=== PATIENT | male | born 1985 | race American Indian/Alaskan Native ===

== ENCOUNTER 2016-09-13 23:12 | Emergency (ER) | payer MEDICAID, OTHER ==
[~2016-09-13] VITALS: Ht 172.7 cm; Wt 72.6 kg
[~2016-09-13 23:12] MED LIST: IBUPROFEN800 MG ORAL; NORCO 5-325 TA1 EACH ORAL; PEPCID40 MG PO
[2016-09-14] VITALS: BP 147/95
[2016-09-14] MEDS ORDERED: LORazepam Inj 2mg/ml 1ml IV ONE
[2016-09-14 00:33] LABS: BASOPHILS % (AUTO) 1.1 % (0.0-2.0); MEAN CORPUSCULAR HEMOGLOBIN 32.8 PG (27.0-31.0); MEAN CORPUSCULAR HGB CONC 35.9 G/DL (32.0-36.0); MEAN CORPUSCULAR VOLUME 91 FL (80-99); MEAN PLATELET VOLUME 6.7 FL (6.5-10.1); MONOCYTES % (AUTO) 7.8 % (1.0-10.0); NEUTROPHILS % (AUTO) 65.1 % (45.0-75.0); PLATELET COUNT 103 K/UL (150-450); RED BLOOD COUNT 4.97 M/UL (4.70-6.10); RED CELL DISTRIBUTION WIDTH 10.8 % (11.6-14.8); WHITE BLOOD COUNT 6.5 K/UL (4.8-10.8)
[2016-09-14 00:50] LABS: ALANINE AMINOTRANSFERASE 132 U/L (3-41); ALBUMIN/GLOBULIN RATIO 1.3 (1.0-2.7); ANION GAP 21 (5-15); ASPARTATE AMINO TRANSFERASE 145 U/L (5-40); CALCIUM 8.3 mg/dL (8.6-10.2); CARBON DIOXIDE 25 mEQ/L (20-30); CHLORIDE 91 mEQ/L (98-107); GLOMERULAR FILTRATION RATE > 60 mL/min (>60); HEMOLYSIS 8; POTASSIUM 3.8 mEQ/L (3.4-4.9); SODIUM 137 mEQ/L (135-145); TOTAL PROTEIN 7.5 g/dL (6.6-8.7)
[2016-09-14 00:56] LABS: ALCOHOL 457 mg/dL
[2016-09-14] MEDS ORDERED: Thiamine HCl 100 MG in D5W 55 ML IVPB ONE (01:00)
[2016-09-14] MEDS ORDERED: Thiamine HCl 100mg/ml Inj ONE (01:09)
[2016-09-14 02:03] VITALS: BP 138/86
--- NOTE | 2016-09-14 03:49 | Emergency Room Report ---
History of Present Illness General Chief Complaint: Alcohol Intoxication Source: Patient Present Illness HPI Patient is a 31-year-old male who presented after having recent heavy alcohol intake. Patient gradual onset of symptoms. Patient had been reportedly drinking for several days. The patient denied hematemesis. He had not been having any bloody stools. Patient had denied alcohol intake today. Patient brought in by family members. Allergies: Coded Allergies: No Known Allergies (Unverified , 09/17/13) Patient History Past Medical History: see triage record Reviewed Nursing Documentation: PMH: Agreed, PSxH: Agreed Nursing Documentation-PMH Past Medical History: No History, Except For Hx Gastrointestinal Problems: Yes - liver problem Review of Systems All Other Systems: negative except mentioned in HPI Physical Exam Vital Signs Date Time Temp Pulse Resp B/P Pulse Ox O2 Delivery O2 Flow Rate FiO2 09/13/16 23:21 98.2 137 14 179/104 98 Room Air Sp02 EP Interpretation: reviewed, normal General Appearance: normal inspection, well appearing, no apparent distress, alert, GCS 15 Head: atraumatic ENT: normal ENT inspection, hearing grossly normal, normal voice Neck: normal inspection, full range of motion, supple, no bony tend Respiratory: normal inspection, lungs clear, normal breath sounds, no respiratory distress, no retraction, no wheezing Cardiovascular #1: regular rate, rhythm, no edema Gastrointestinal: normal inspection, normal bowel sounds, non tender, soft, no guarding, no hernia Genitourinary: no CVA tenderness Musculoskeletal: normal inspection, back normal, normal range of motion Neurologic: normal inspection, alert, oriented x3, responsive, quality assurance tech III-XII nml as tested, speech normal Psychiatric: normal inspection, judgement/insight normal, mood/affect normal Skin: normal inspection, normal color, no rash Medical Decision Making Diagnostic Impression: Primary Impression: Acute alcoholic intoxication ER Course Patient was noted to have initially confused mental status. Patient had gradual improvement of neurologic status. The patient noted have a markedly elevated blood alcohol level. Patient was initially given IV Ativan as he appear to be slightly tremulous. Patient started on IV thiamine. Patient gradual improvement in his mental status. At the time of discharge patient was admitted without assistance. The patient was given oral Ativan. Patient stated he wanted to go home. Patient given prescription for Ativan. Patient was advised to stop drinking alcohol. And to followup with outpatient therapy for alcohol treatment.The patient was advised to return if he had any worsening of symptoms or concerns. Labs Test 09/13/16 23:40 09/14/16 01:30 White Blood Count 6.5 K/UL (4.8-10.8) Red Blood Count 4.97 M/UL (4.70-6.10) Hemoglobin 16.3 G/DL (14.2-18.0) Hematocrit 45.4 % (42.0-52.0) Mean Corpuscular Volume 91 FL (80-99) Mean Corpuscular Hemoglobin 32.8 PG (27.0-31.0) Mean Corpuscular Hemoglobin Concent 35.9 G/DL (32.0-36.0) Red Cell Distribution Width 10.8 % (11.6-14.8) Platelet Count 103 K/UL (150-450) Mean Platelet Volume 6.7 FL (6.5-10.1) Neutrophils (%) (Auto) 65.1 % (45.0-75.0) Lymphocytes (%) (Auto) 26.0 % (20.0-45.0) Monocytes (%) (Auto) 7.8 % (1.0-10.0) Eosinophils (%) (Auto) 0.0 % (0.0-3.0) Basophils (%) (Auto) 1.1 % (0.0-2.0) Sodium Level 137 mEQ/L (135-145) Potassium Level 3.8 mEQ/L (3.4-4.9) Chloride Level 91 mEQ/L (98-107) Carbon Dioxide Level 25 mEQ/L (20-30) Anion Gap 21 (5-15) Blood Urea Nitrogen 16 mg/dL (7-23) Creatinine 1.0 mg/dL (0.7-1.2) Estimat Glomerular Filtration Rate > 60 mL/min (>60) Glucose Level 142 mg/dL (74-106) Calcium Level 8.3 mg/dL (8.6-10.2) Total Bilirubin 0.9 mg/dL (0.0-1.2) Aspartate Amino Transf (AST/SGOT) 145 U/L (5-40) Alanine Aminotransferase (ALT/SGPT) 132 U/L (3-41) Alkaline Phosphatase 123 U/L (40-129) Total Protein 7.5 g/dL (6.6-8.7) Albumin 4.3 g/dL (3.5-5.2) Globulin 3.2 g/dL Albumin/Globulin Ratio 1.3 (1.0-2.7) Serum Alcohol 457 mg/dL Urine Opiates Screen Negative (NEGATIVE) Urine Barbiturates Screen Negative (NEGATIVE) Phencyclidine (PCP) Screen Negative (NEGATIVE) Urine Amphetamines Screen Negative (NEGATIVE) Urine Benzodiazepines Screen Negative (NEGATIVE) Urine Cocaine Screen Negative (NEGATIVE) Urine Marijuana (THC) Screen Negative (NEGATIVE) Last Vital Signs Date Time Temp Pulse Resp B/P Pulse Ox O2 Delivery O2 Flow Rate FiO2 09/14/16 02:03 115 16 138/86 96 Room Air 09/13/16 23:21 98.2 Status: improved Disposition: HOME, SELF-CARE Condition: Stable Scripts Lorazepam* (ATIVAN*) 1 Mg Tablet 1 MG ORAL THREE TIMES A DAY, #14 TAB Prov: Kaleb Crook 09/14/16 Referrals: [facility]ERR[facility] (PCP) Kaleb Croko Sep 14, 2016 03:49
[2016-09-14 04:00] VITALS: BP 146/96
[2016-09-14] MEDS ORDERED: ATIVAN1 MG ORAL (04:39)
[2016-09-14 04:40] VITALS: BP 146/96
[2016-09-14] MEDS ORDERED: LORazepam 1mg tab ORAL ONE (04:45)
== END 2016-09-14 04:40 | disposition home or self-care (01) ==
LOC: EMR 23:40
DX: F10.129 Alcohol abuse with intoxication, unspecified (principal)
CPT/HCPCS: 36415; 80053; 80300; 80329; 85025; 96374; 96375

== ENCOUNTER 2016-12-26 22:55 | Emergency (ER) | payer MEDICAID ==
[~2016-12-26] VITALS: Ht 175.3 cm; Wt 77.1 kg
[~2016-12-26 22:55] MED LIST changes: +ATIVAN1 MG ORAL
[2016-12-26 23:32] VITALS: BP 144/95
--- NOTE | 2016-12-26 23:32 | Emergency Room Report ---
History of Present Illness General Chief Complaint: To Be Triaged Source: Patient Present Illness HPI The patient has swelling in his tongue for 3 days. He woke up with a cut on the side and also thinks he bit his lip. He had stopped drinking alcohol several days prior to this. He denies prior trauma or fever. He has never had seizures in the past. There was a yellow buildup on the tongue today and he was worried about infection. He scraped off his tongue and it is slightly tender. Never evaluated for seizure in past. No NVD, dysuria, other bone tenderness. Allergies: Coded Allergies: No Known Allergies (Unverified , 09/17/13) Patient History Past Medical History: see triage record Social History: Reports: alcohol use Social History Narrative works Reviewed Nursing Documentation: PMH: Agreed, PSxH: Agreed Nursing Documentation-PMH Hx Gastrointestinal Problems: Yes - liver problem Review of Systems All Other Systems: negative except mentioned in HPI Physical Exam Vital Signs Date Time Temp Pulse Resp B/P (MAP) Pulse Ox O2 Delivery O2 Flow Rate FiO2 12/26/16 23:25 98.1 90 16 144/95 99 Room Air Sp02 EP Interpretation: reviewed, normal General Appearance: well appearing, no apparent distress, GCS 15 Head: normocephalic Eyes: bilateral eye normal inspection, bilateral eye PERRL ENT: moist mucus membranes, other - Tongue with maceration R towards the tip. Also R lower lip with some swelling internally without laceration ore significant erythema. Tongue without coating Neck: full range of motion, supple, no bony tend Respiratory: lungs clear, normal breath sounds Cardiovascular #1: regular rate, rhythm Cardiovascular #2: 2+ radial (R) Gastrointestinal: normal inspection, normal bowel sounds, non tender, no mass, non-distended Musculoskeletal: back normal, gait/station normal, normal range of motion Neurologic: alert, oriented x3 Skin: normal inspection, warm/dry Medical Decision Making Diagnostic Impression: Primary Impression: Tongue injury Qualified Codes: S09.93XA - Unspecified injury of face, initial encounter Additional Impression: Suspect withdrawal seizure ER Course Patient with tongue maceration. DDx: seizure, glossitis, other trauma. Patient at risk of withdrawal seizure with h/o prior alcohol use. Tongue injury needs antibiotics and analgesics. Concerning the possibility of seizure, patient at risk of withdrawal seizure. This happened 3 days ago. Most likely, as first episode, most would recommend not treating seizure (if second episode, most would recommend treatment). Patient denies prior episodes like this. Clinically, he is stable at this time and no labs or CT indicated. However, patient was told not to drive (given seizure precautions) until evaluated by neurologist. Patient understands this. We will notify DMV. Patient stable for outpatient observation and treatment. Last Vital Signs Date Time Temp Pulse Resp B/P (MAP) Pulse Ox O2 Delivery O2 Flow Rate FiO2 12/26/16 23:42 90 16 144/95 99 Room Air 12/26/16 23:32 98.1 Status: unchanged Disposition: HOME, SELF-CARE Condition: Stable Scripts Ibuprofen* (MOTRIN*) 600 Mg Tablet 600 MG ORAL Q6H Y for For Pain, #20 TAB Prov: David Jacobson M.D. 12/26/16 Amoxicillin/Potassium Clav 500-125 Tablet* (AUGMENTIN 500-125 TABLET*) 1 Each Tablet 1 TAB ORAL THREE TIMES A DAY, #21 TAB Prov: David Jacobson M.D. 12/26/16 David Jacobson M.D. Dec 26, 2016 23:32
[2016-12-26] MEDS ORDERED: IBUPROFEN600 MG ORAL (23:34)
[2016-12-26] MEDS ORDERED: AUGMENTIN 500-1 EACH ORAL (23:34)
[2016-12-26 23:42] VITALS: BP 144/95
== END 2016-12-26 23:45 | disposition home or self-care (01) ==
LOC: EMR 23:35
DX: S09.93XA Unspecified injury of face, initial encounter (principal); X58.XXXA Exposure to other specified factors, initial encounter; Y93.9 Activity, unspecified; Y99.9 Unspecified external cause status; K76.9 Liver disease, unspecified; Z72.89 Other problems related to lifestyle
CPT/HCPCS: 99283